=== PATIENT | female | born 1940 | race Caucasian/White ===

== ENCOUNTER → 2016-06-09 | Outpatient (CLI) | payer MEDICARE, BC ==
[~2016-06-09] MED LIST: ABILIFY5 MG PO; ACTOS DPS15 MG PO; AMARYL2 MG PO; BYSTOLIC5 MG PO; COLACE-DPS100 MG PO; COMBIGAN5 ML OU; GLUCOPHAGE XR500 MG PO; GLUTOSE 1537.5 GM PO; HCTZ12.5 MG PO; HUMALOG100 UNIT/1 SQ; LEVAQUIN DPS500 MG PO; LEVEMIR100 UNIT/1 SQ; LUMIGAN 0.01%2.5 ML OU; MAALOX DPS30 ML PO; MICRO-K DPS8 MEQ PO; NITROSTAT0.4 MG SL; NORVASC5 MG PO; PRAVACHOL40 MG PO; SIMBRINZA 1%-0.28 ML OU; SYNTHROID DP0.075 MG PO; TYLENOL DPS325 MG PO; VICTOZA 2-0.6 MG/0.1 SQ; ZESTRIL DPS10 MG PO; ZOLOFT DPS50 MG PO
== END | disposition home or self-care (01) ==
LOC: RAD.S 05-29 17:19
DX: Z12.31 Encounter for screening mammogram for malignant neoplasm of breast (principal); Z13.820 Encounter for screening for osteoporosis; M85.89 Other specified disorders of bone density and structure, multiple sites; Z78.0 Asymptomatic menopausal state

== ENCOUNTER 2016-06-29 09:28 | Observation (INO) | payer MEDICARE, BC ==
[~2016-06-29] VITALS: Ht 162.6 cm; Wt 74.1 kg
--- NOTE | ~2016-06-29 | ECH ---
Transthoracic Echocardiography Report (TTE) Demographics Patient Name JERI LANGE Date of Study 06/29/2016 Patient Number [id number] Visit Number [id number] Date of 1940 Room Number 426 Accession Number [id number] Gender Female Age 75 year(s) Referring King Rafa Meyers MD Machine Tool Rebuilder Adriana Grace [facility] Physician Physician Interpreting Cait Holt [place] Vessel Pilot Physician MD Supervising Ordering Physician Isai COREAS MD/MLP Nurse Stress Proced Tech Conclusions Summary Limited exam for ejection fraction and wall motion abnormalities. Technically adequate exam. The estimated left ventricular ejection fraction is 60-65%. Normal wall motion Mild left ventricular hypertrophy. Procedure Type of Study TTE procedure:Echo Limited SF. Procedure Date Date: 06/29/2016 Start: 11:40 AM Technical Quality: Adequate visualization Indications:Bradycardia and Chest pain. Appropriate Use Criteria: 9 Height: 64 inches Weight: 165 pounds BSA: 1.8 m Rhythm: Sinus bradycardia HR: 45 bpm BP: 151/64 mmHg M-Mode/2D Measurements LV Diastolic Dimension: 4.87 cm LV Systolic Dimension: 3.87 cm LV Septum Diastolic: 1.05 cm LV PW Diastolic: 0.91 cm AO Root Dimension: 2.62 cm LA Dimension: 4.13 cm RV Diastolic Dimension: 3.14 cm LA volume: 48.47 ml LA volume index: 27 ml/m LVOT: 1.86 cm RV Base: 4.36 cm RV Mid: 2.8 cm RV Length: 6.4 cm Doppler Measurements RA Area: 20.73 cm Findings Left Ventricle The left ventricle is normal in size . Mild left ventricular hypertrophy. Right Ventricle Normal right ventricle structure and function. Left Atrium Normal left atrial size. Right Atrium The right atrium is at upper limits of normal size. Mitral Valve Normal mitral valve structure and function. Aortic Valve Normal aortic valve structure and function. Tricuspid Valve Normal tricuspid valve structure and function. Pulmonic Valve Normal pulmonic valve structure and function. Pericardial Effusion No evidence of pericardial effusion. Miscellaneous Visualized portions of the aortic root and ascending aorta appear normal in size. Pleural Effusion No evidence of pleural effusion. Contractility Score LV regional wall motion:(0-Non visualized 1-Normal 2-Hypokinesis 3-Akinesis 4-Dyskinesis 5-Aneurysm) Signature
--- NOTE | ~2016-06-29 | CATH ---
Cardiac Diagnostic Report Demographics Patient Name NAZARIO Zamora Gender Female Date of 1940 Age 75 year(s) Patient Number [id number] Date of Study 06/30/2016 Visit Number [id number] Room Number 426 Corporate ID Ht 162.56 cm Wt 73.94 kg Accession Number [id number] BSA 1.79 m kg/m Referring Cait Argueta Primary Physician Physician Alta Meyers MD Performing King Rafa Meyers MD Secondary Physician Physician Diagnostic King Rafa Meyers MD Assisting Physician Physician Interventional Physician Small Business Sales Representative Physician Findings and Conclusions Diagnostic Findings and Conclusion Non-obstructive CAD. Diagnostic Recommendations Medical management and evaluate bradycardia. Procedure Description The patient was brought to the diagnostic cardiac catheterization laboratory in the fasting, non-sedated state. Informed consent was obtained in the written and verbal form after the risks and benefits were explained. The patient had no further questions and agreed to proceed. The planned puncture-incision site(s) were shaved and prepped with ChloraPrep and draped in the usual sterile manner. Conscious sedation, supplemental oxygen, and pain control medications were delivered by a registered nurse under physician guidance. Surface ECG rhythm, blood pressure measurement, and pulse oximetry were monitored throughout the procedure. Arterial access. The access site was infiltrated with lidocaine. The right radial vessel was entered with the Seldinger technique. A 6F radial sheath was advanced into the vessel and used for catheter placement. Selective left coronary angiography. A 6F JL3.5 catheter was advanced into the left coronary vessel ostium under Fluoroscopic guidance. Contrast was injected by hand. Images were obtained in multiple projections. Selective right coronary angiography. A 6F FR4 catheter was advanced into the right coronary vessel ostium under fluoroscopic guidance. Contrast was injected by hand. Images were obtained in multiple projections. Left heart catheterization with ventriculography. A 6F Tig catheter was advanced across the aortic valve to the left ventricle under fluoroscopic guidance. Resting hemodynamics were obtained. With the catheter at the left ventricular apex, contrast was injected. Images were obtained in FRENCH projections. Post-ventriculography LV pressure was obtained. The catheter was gradually withdrawn into the aorta with continuous pressure recording. Arterial artery hemostasis was achieved using a TR band. The patient was transferred to a regular nursing floor via cart accompanied by a nurse. The patient left the laboratory in stable condition. Diagnostic Cath Status: Urgent Procedure Procedure Type Diagnostic procedure:Ventriculogram:, Left, Angiography:, Coronary Angios /[facility] Indications: Elevated troponin. The procedure was explained in detail to the patient. Risks, complications and alternative treatments were reviewed. Written consent was obtained. Medications Reviewed with Patient prior to Procedure. Angiographic Findings Dominance: Right Cardiac Arteries and Lesion Findings LMCA: Normal (0% Stenosis). LAD: Normal (0% Stenosis). Lesion on 1st Diag: Ostial.50% stenosis . LCx: Abnormal.luminal irregularities Lesion on Prox CX: 20% stenosis . RCA: Lesion on Mid RCA: 40% stenosis . Coronary Tree Procedure Data Procedure Date Date: 06/30/2016Start: 11:15 AM Entry Locations - Percutaneous access was performed through the Right Radial artery (Primary location). A 6 Fr sheath was inserted. Hemostasis was successfully obtained using a TR band. Procedure Medications Order and Administration + + +-------+-------+ !Time !Medication !Dosage !Route ! + + +-------+-------+ !06/30/2016 !Versed !2 mg !I.V. ! !10:59 AM ! ! ! ! + + +-------+-------+ !06/30/2016 !Fentanyl !50 mcg !I.V. ! !10:59 AM ! ! ! ! + + +-------+-------+ !06/30/2016 !Benadryl !25 mg !I.V. ! !11:00 AM ! ! ! ! + + +-------+-------+ !06/30/2016 !Sodium Chloride !10 ml !I.V. ! !11:00 AM ! ! ! ! + + +-------+-------+ !06/30/2016 !SF Radial Cocktail: 200mcg Nitro, 2.5 mg ! !I.A. ! !11:21 AM !Verapamil, 5000u Heparin ! ! ! + + +-------+-------+ Devices Used - A6F TIG CATHETER.Unable to cannulate the vessel. Comments: coronary angiograms. - ACATH 6FR FL3.5 CATHETER 100CMwas used for:Left coronary angiography. - ACATH 6F FR4 CATHETER 100CMwas used for:Right coronary angiography. Contrast Material - Isovue [id number] ml Fluoroscopy Time: Diagnostic: 2:42 minutes. Total: 2:42 minutes. Fluoroscopy Dose: Diagnostic: 315 mGy. Total: 315 mGy. Estimated Blood Loss: 10 ml. Medical History Allergies - No known allergies. Risk Factors The patient risk factors include:last creatinine: 0.9 mg/dl and creatinine clearance: 61.1 ml/min. Admission Data Admission Date: 06/29/2016 Admission Time: 09:28 AM Insurance Payors: Medicare. Clinical Evaluation Leading to Procedure Diagnosed on 06/29/2016 12:00 AM. - The patient's CAD presentation was assessed as: Unstable angina. - Anti-anginal medications were prescribed during the past two weeks. The medications are: Beta Blockers and Ca channel Blockers. VA LV function assessed as:Normal. Ejection Fraction - 06/30/2016 - Method: LV gram. EF%: 60. Hemodynamics Condition: Rest O2 Consumption: Estimated: 151.19Heart Rate: 54 bpm Pressures (mmHg) +-----+ + !Site !Pressure ! +-----+ + !LV !129/5 ,9 ! +-----+ + !LV !138/1 ,10 ! +-----+ + !AO !159/55 (92) ! +-----+ + !LV !146/3 ,11 ! +-----+ + !AO !150/54 (91) ! +-----+ + Valve Gradients and Areas + +---------+---------+---------+ +---------+ + !Valve !Peak !Mean !Area !Index !Flow !Source ! + +---------+---------+---------+ +---------+ + !Aortic !0 !0 ! ! ! ! ! + +---------+---------+---------+ +---------+ + !Aortic !0 !0 ! ! ! ! ! + +---------+---------+---------+ +---------+ + Shunts Oxygen Values O2 Capacity 182.24 O2 Consumption 151.19 Discharge Data Discharge Date: 06/30/2016 Hospital Status: Inpatient Signatures
[2016-07-02] MEDS ORDERED: AMARYL2 MG PO (15:46)
[2016-07-02] MEDS ORDERED: ABILIFY5 MG PO (15:46)
[2016-07-02] MEDS ORDERED: PRAVACHOL40 MG PO (15:47)
[2016-07-02] MEDS ORDERED: HCTZ12.5 MG PO (15:47)
[2016-07-02] MEDS ORDERED: GLUCOPHAGE XR500 MG PO (15:47)
[2016-07-02] MEDS ORDERED: ZESTRIL DPS10 MG PO (15:47)
[2016-07-02] MEDS ORDERED: SYNTHROID DP0.075 MG PO (15:47)
[2016-07-02] MEDS ORDERED: ZOLOFT DPS50 MG PO (15:48)
[2016-07-02] MEDS ORDERED: ACTOS DPS15 MG PO (15:48)
[2016-07-02] MEDS ORDERED: NORVASC5 MG PO (15:48)
[2016-07-02] MEDS ORDERED: MICRO-K DPS8 MEQ PO (15:48)
[2016-07-02] MEDS ORDERED: LEVEMIR100 UNIT/1 SQ ×2 (15:49→15:50)
[2016-07-02] MEDS ORDERED: COMBIGAN5 ML OU (15:49)
[2016-07-02] MEDS ORDERED: SIMBRINZA 1%-0.28 ML OU (15:49)
[2016-07-02] MEDS ORDERED: LUMIGAN 0.01%2.5 ML OU (15:49)
[2016-07-02] MEDS ORDERED: VICTOZA 2-0.6 MG/0.1 SQ (15:50)
[2016-07-11] MEDS ORDERED: HUMALOG100 UNIT/1 SQ (11:26)
[2016-07-11] MEDS ORDERED: LEVAQUIN DPS500 MG PO (11:27)
[2016-07-11] MEDS ORDERED: COLACE-DPS100 MG PO (11:27)
[2016-07-11] MEDS ORDERED: TYLENOL DPS325 MG PO (11:28)
[2016-07-11] MEDS ORDERED: NITROSTAT0.4 MG SL (11:28)
[2016-07-11] MEDS ORDERED: MAALOX DPS30 ML PO (11:28)
[2016-07-11] MEDS ORDERED: GLUTOSE 1537.5 GM PO (11:28)
[2016-07-11] MEDS ORDERED: BYSTOLIC5 MG PO (11:29)
== END 2016-06-30 17:36 | disposition home or self-care (01) ==
LOC: 4PCU 09:28
PROVIDERS: ADMIT Internal Medicine
DX: I25.110 Atherosclerotic heart disease of native coronary artery with unstable angina pectoris (principal); I10 Essential (primary) hypertension; F41.9 Anxiety disorder, unspecified; F32.9 Major depressive disorder, single episode, unspecified; E11.9 Type 2 diabetes mellitus without complications; Z90.710 Acquired absence of both cervix and uterus; Z90.49 Acquired absence of other specified parts of digestive tract; Z98.890 Other specified postprocedural states; Z79.82 Long term (current) use of aspirin; Z79.899 Other long term (current) drug therapy

== ENCOUNTER 2016-07-06 19:31 | Inpatient (IN) | payer MEDICARE, BC ==
[~2016-07-06 19:31] MED LIST changes: -BYSTOLIC5 MG PO; -COLACE-DPS100 MG PO; -GLUTOSE 1537.5 GM PO; -HUMALOG100 UNIT/1 SQ; -LEVAQUIN DPS500 MG PO; -MAALOX DPS30 ML PO; -NITROSTAT0.4 MG SL; -TYLENOL DPS325 MG PO
[2016-07-11] MEDS ORDERED: HUMALOG100 UNIT/1 SQ (11:26)
[2016-07-11] MEDS ORDERED: LEVAQUIN DPS500 MG PO (11:27)
[2016-07-11] MEDS ORDERED: COLACE-DPS100 MG PO (11:27)
[2016-07-11] MEDS ORDERED: GLUTOSE 1537.5 GM PO (11:28)
[2016-07-11] MEDS ORDERED: NITROSTAT0.4 MG SL (11:28)
[2016-07-11] MEDS ORDERED: MAALOX DPS30 ML PO (11:28)
[2016-07-11] MEDS ORDERED: TYLENOL DPS325 MG PO (11:28)
[2016-07-11] MEDS ORDERED: BYSTOLIC5 MG PO (11:29)
== END 2016-07-10 14:16 | disposition home or self-care (01) | DRG 55 ==
DX: C71.9 Malignant neoplasm of brain, unspecified (principal); I24.8 Other forms of acute ischemic heart disease; N39.0 Urinary tract infection, site not specified; J44.9 Chronic obstructive pulmonary disease, unspecified; E11.9 Type 2 diabetes mellitus without complications; R41.82 Altered mental status, unspecified; I25.10 Atherosclerotic heart disease of native coronary artery without angina pectoris; R07.89 Other chest pain; I10 Essential (primary) hypertension; F32.9 Major depressive disorder, single episode, unspecified; F41.9 Anxiety disorder, unspecified; H40.9 Unspecified glaucoma; R29.810 Facial weakness; R79.89 Other specified abnormal findings of blood chemistry; E78.5 Hyperlipidemia, unspecified; I25.2 Old myocardial infarction; Z79.84 Long term (current) use of oral hypoglycemic drugs; Z82.49 Family history of ischemic heart disease and other diseases of the circulatory system; Z79.4 Long term (current) use of insulin

== ENCOUNTER → 2016-08-21 | Outpatient (CLI) | payer MEDICARE, BC ==
[~2016-08-21] MED LIST changes: +BYSTOLIC5 MG PO; +COLACE-DPS100 MG PO; +GLUTOSE 1537.5 GM PO; +HUMALOG100 UNIT/1 SQ; +LEVAQUIN DPS500 MG PO; +MAALOX DPS30 ML PO; +NITROSTAT0.4 MG SL; +TYLENOL DPS325 MG PO
== END | disposition home or self-care (01) ==
LOC: RAD.S 09:09 → PTH.S 10:15 → RAD.S 10:45
DX: G93.89 Other specified disorders of brain (principal); R93.0 Abnormal findings on diagnostic imaging of skull and head, not elsewhere classified; J32.9 Chronic sinusitis, unspecified